=== PATIENT | female | born 1945 | race Caucasian/White ===

== ENCOUNTER 2018-05-23 08:44 | Emergency (ER) | payer BC, OTHER ==
[~2018-05-23] VITALS: Ht 165.1 cm; Wt 89.4 kg
[2018-05-23 08:51] VITALS: BP 127/76
--- NOTE | 2018-05-23 08:56 | NUR ---
PT AMBULATED TO ER BED 11
--- NOTE | 2018-05-23 09:00 | NUR ---
PATIENT PRESENTS TO ED WITH COMPLAINTS OF DIZZINESS X1 DAY. PATIENT STATES DIZZINESS STARTED LAST NIGHT AND HAS NOT GOTTEN ANY BETTER THIS MORNING. PATIENT APPEARS TO HAVE BRUISING AROUND THE EYES AND BRIDGE OF NOSE. PATIENT REPORTS TRIP AND FALL ON MONDAY, PARAMEDICS ARRIVED ON SCENE TO EVALUATE; PATIENT WAS SEEN ON MONDAY BY PCP AND DEEMED STABLE. PATIENT DENIES LOC. ACCUCHECK 131.DENIES N/V/D; SKIN IS PINK/WARM/DRY; AAOX4 WITH EVEN AND STEADY GAIT; PT DENIES ANY FEVER, CP, SOB, OR COUGH AT THIS TIME; PATIENT STATES PAIN OF 5/10 AT THIS TIME; VSS; PATIENT POSITIONED FOR COMFORT; HOB ELEVATED; BEDRAILS UP X1; BED DOWN. ER MD MADE AWARE OF PT STATUS.
--- NOTE | 2018-05-23 09:25 | NUR ---
PATIENT TAKEN TO CT VIA WHEELCHAIR.
--- NOTE | 2018-05-23 09:40 | NUR ---
PATIENT BACK FROM CT
[2018-05-23 11:18] VITALS: BP 116/72
--- NOTE | 2018-05-23 11:18 | NUR ---
Patient discharged with v/s stable. Written and verbal after care instructions given and explained. Patient verbalized understanding. Ambulatory with steady gait. All questions addressed prior to discharge. Advised to follow up with PMD.
== END 2018-05-23 11:18 | disposition home or self-care (01) ==
LOC: MED 08:44
DX: F07.81 Postconcussional syndrome (principal); Z88.6 Allergy status to analgesic agent
CPT/HCPCS: 70450; 99284